=== PATIENT | male | born 1990 | race African-American/Black ===

== ENCOUNTER 2022-03-20 09:30 | Emergency (ER) | payer OTHER ==
[2022-03-20 09:57] VITALS: BP 145/93; PULSE 68; RESP 16; TEMP 97.9; BMI 27.7
[2022-03-20] MEDS ORDERED: FLUORESCEIN NA 1 EA STRIP OD ONE (10:44)
[2022-03-20] MEDS ORDERED: TETRACAINE 0.5% HCL 0.6ML DROPPER.BOTTLE OD ONE (10:45)
[2022-03-20] MEDS ORDERED: FLUORESCEIN NA 1 EA STRIP ONE ×2 (10:47→11:06)
[2022-03-20] MEDS ORDERED: TETRACAINE 0.5% OPHTH SOLN 2 ML BOTTLE ONE ×2 (10:47→11:07)
== END 2022-03-20 11:23 | disposition home or self-care (01) ==
LOC: JERFT 09:30
DX: H53.8 Other visual disturbances (principal)
CPT/HCPCS: 99283-25

== ENCOUNTER 2023-07-21 16:25 | Emergency (ER) | payer OTHER ==
[2023-07-21 16:30] VITALS: BP 119/62; PULSE 96; RESP 18; TEMP 99.3; BMI 27.7
== END 2023-07-21 19:22 | disposition home or self-care (01) ==
LOC: JERFT 16:25
PROC: 0HQ1XZZ Repair Face Skin, External Approach (ICD-10-PCS; principal; 2023-07-21)
DX: S01.511A Laceration without foreign body of lip, initial encounter (principal); W50.0XXA Accidental hit or strike by another person, initial encounter
CPT/HCPCS: 99283-25

== ENCOUNTER 2023-07-26 15:17 | Emergency (ER) | payer OTHER ==
[2023-07-26 15:22] VITALS: BP 112/76; PULSE 87; RESP 18; TEMP 98; BMI 27.7
== END 2023-07-26 15:53 | disposition home or self-care (01) ==
LOC: JERFT 15:17 → JER 15:17 → JERFT 15:53
DX: Z48.02 Encounter for removal of sutures (principal)
CPT/HCPCS: 99281-25